=== PATIENT | female | born 1940 | race African-American/Black ===

== ENCOUNTER 2017-01-16 15:48 | Inpatient (IN) | payer MEDICARE ==
[~2017-01-16] VITALS: Ht 160 cm; Wt 55.4 kg
--- NOTE | 2017-01-16 16:37 | ED.ADGEN ---
Adult General Chief Complaint Chief Complaint: ABDOMINAL PAIN HPI HPI Patient is a 76 year old woman, who does not take any medications or have any known medical problems, who presents to the emergency department with a complaint of several days of gradually worsening abdominal distention and pain. Patient denies any nausea, is complaining of pain is sometimes extreme, located in her lower abdomen. States her last bowel movement was today and was normal. States she's not sure if there is any blood in her urine, denies any emesis, denies any injuries, denies any urinary complaints, any focal weakness, numbness , tingling, chest pain, shortness breath, fevers, chills or similar symptoms previously. Patient's family is present with her at bedside. States the patient has had decreased appetite over the past several days as well. No previous surgeries. Review of Systems Review of Systems Constitutional: Denies fever or chills. [] Eyes: Denies change in visual acuity. [] HENT: Denies nasal congestion or sore throat. [] Respiratory: Denies cough or shortness of breath. [] Cardiovascular: Denies chest pain or edema. [] GI: Complaining of cramping abdominal pain and distention, no nausea, vomiting, bloody stools or diarrhea, no constipation. : Denies dysuria. [] Musculoskeletal: Denies back pain or joint pain. [] Integument: Denies rash. [] Neurologic: Denies headache, focal weakness or sensory changes. [] Endocrine: Denies polyuria or polydipsia. [] Lymphatic: Denies swollen glands. [] Psychiatric: Denies depression or anxiety. [] Current Medications Current Medications Current Medications Medications (Trade) Dose Ordered Sig/Liborio Start Time Stop Time Status Last Admin Dose Admin Fentanyl Citrate (Fentanyl 2ml Vial) 25 mcg PRN Q15MIN PRN 01/16/17 16:45 01/16/17 21:12 DC 01/16/17 17:32 25 MCG Info (Do NOT chart on this entry -- for MONITORING) 1 each PRN DAILY PRN 01/16/17 16:45 01/18/17 16:44 Iohexol (Omnipaque 240 Mg/ml) 30 ml 1X ONCE 01/16/17 17:00 01/16/17 17:01 DC 01/16/17 17:00 30 ML Iohexol (Omnipaque 300 Mg/ml) 75 ml 1X ONCE 01/16/17 17:00 01/16/17 17:01 DC 01/16/17 17:41 75 ML Ondansetron HCl (Zofran) 4 mg 1X ONCE 01/16/17 16:45 01/16/17 16:46 DC 01/16/17 17:31 4 MG Sodium Chloride 500 ml @ 500 mls/hr 1X ONCE 01/16/17 18:30 01/16/17 19:29 DC 01/16/17 19:00 500 MLS/HR Allergies Allergies Allergies Coded Allergies Type Severity Reaction Last Updated Verified No Known Drug Allergies 01/16/17 No Physical Exam Physical Exam Constitutional: Well developed, well nourished, no acute distress, non-toxic appearance. [] HENT: Normocephalic, atraumatic, bilateral external ears normal, oropharynx moist, no oral exudates, nose normal. [] Eyes: PERRLA, EOMI, conjunctiva normal, no discharge. [] Neck: Normal range of motion, no tenderness, supple, no stridor. [] Cardiovascular:Heart rate regular rhythm, no murmur, S1, S2, rubs or gallops. [] Lungs & Thorax: Bilateral breath sounds clear to auscultation, no wheezing, rhonchi, rales. No chest or crepitus or tenderness. [] Abdomen: Bowel sounds significantly diminished, no tympany, abdomen is distended , soft, tender throughout, no external signs of abnormalities, positive for voluntary guarding, no rebound or rigidity. Skin: Warm, dry, no erythema, no rash. [] Back: No tenderness, no CVA tenderness. [] Extremities: No tenderness, no cyanosis, no clubbing, ROM intact, no edema. Negative Homans sign. [] Neurologic: Alert and oriented X 3, normal motor function, normal sensory function, no focal deficits noted. [] Psychologic: Affect normal, judgement normal, mood normal. [] Current Patient Data Vital Signs Vital Signs Date Time Temp Pulse Resp B/P (MAP) Pulse Ox O2 Delivery O2 Flow Rate FiO2 01/16/17 17:54 52 31 139/65 (89) 89 01/16/17 17:32 Room Air 01/16/17 15:51 97.9 97.9 Lab Values Laboratory Tests Test 01/16/17 16:30 White Blood Count 5.6 x10^3/uL (4.0-11.0) Red Blood Count 4.77 x10^6/uL (3.50-5.40) Hemoglobin 13.5 g/dL (12.0-15.5) Hematocrit 40.0 % (36.0-47.0) Mean Corpuscular Volume 84 fL (79-100) Mean Corpuscular Hemoglobin 28 pg (25-35) Mean Corpuscular Hemoglobin Concent 34 g/dL (31-37) Red Cell Distribution Width 14.0 % (11.5-14.5) Platelet Count 331 x10^3/uL (140-400) Neutrophils (%) (Auto) 80 % (31-73) H Lymphocytes (%) (Auto) 12 % (24-48) L Monocytes (%) (Auto) 7 % (0-9) Eosinophils (%) (Auto) 0 % (0-3) Basophils (%) (Auto) 0 % (0-3) Neutrophils # (Auto) 4.5 x10^3uL (1.8-7.7) Lymphocytes # (Auto) 0.7 x10^3/uL (1.0-4.8) L Monocytes # (Auto) 0.4 x10^3/uL (0.0-1.1) Eosinophils # (Auto) 0.0 x10^3/uL (0.0-0.7) Basophils # (Auto) 0.0 x10^3/uL (0.0-0.2) Sodium Level 141 mmol/L (136-145) Potassium Level 3.6 mmol/L (3.5-5.1) Chloride Level 103 mmol/L (98-107) Carbon Dioxide Level 28 mmol/L (21-32) Anion Gap 10 (6-14) Blood Urea Nitrogen 13 mg/dL (7-20) Creatinine 0.9 mg/dL (0.6-1.0) Estimated GFR (Cockcroft-Gault) 60.7 BUN/Creatinine Ratio 14 (6-20) Glucose Level 122 mg/dL (70-99) H Lactic Acid Level 2.5 mmol/L (0.4-2.0) H Calcium Level 9.0 mg/dL (8.5-10.1) Total Bilirubin 0.4 mg/dL (0.2-1.0) Aspartate Amino Transferase (AST) 22 U/L (15-37) Alanine Aminotransferase (ALT) 30 U/L (14-59) Alkaline Phosphatase 59 U/L (46-116) Total Protein 7.3 g/dL (6.4-8.2) Albumin 3.0 g/dL (3.4-5.0) L Albumin/Globulin Ratio 0.7 (1.0-1.7) L Lipase 82 U/L (73-393) Laboratory Tests 01/16/17 16:30 Laboratory Tests 01/16/17 16:30 EKG EKG EC: Sinus rhythm, heart rate 58 bpm, left axis deviation, QTC of 435, DE of 136, QRS 92, contour normality is noted in the lateral leads, inferior leads , abnormal ECG, does not meet STEMI criteria. As interpreted by me. Radiology/Procedures Radiology/Procedures [][facility] [address] [place] [address] IMAGING REPORT Signed PATIENT: TYREL TREJO ACCOUNT: [id number] : 1940 LOCATION: ER AGE: 76 SEX: F EXAM STATUS: REG ER ORD. PHYSICIAN: ANA LUISA PALACIO DO REASON: abd pain/distention PROCEDURE: CT ABD PELV W/ORAL&IV CONTRAST CT scan of the abdomen and pelvis with contrast 01/16/2017 CLINICAL HISTORY: Abdominal pain and distention. TECHNIQUE: After the oral administration of contrast and the intravenous administration of 75 cc of Omnipaque 240, contiguous, 5 mm axial sections were obtained through the abdomen and pelvis. One or more of the following individualized dose reduction techniques were utilized for this study: 1. Automated exposure control. 2. Adjustment of the mA and/or kV according to patient size. 3. Use of iterative reconstruction technique. FINDINGS: No previous imaging studies are available for comparison. Images through the lung bases demonstrate mild cardiomegaly. There is a small right pleural effusion. Right lower lobe atelectasis and/or infiltrate is seen. The liver, spleen, pancreas, and adrenal glands are within normal limits. A few rounded low-attenuation lesions are seen involving both kidneys. These measure 3 mm to 1.1 cm in size. These likely represent cysts. Mild to moderate scattered atherosclerotic plaque formation is seen involving the abdominal aorta and its branches. A large oval-shaped fluid collection is seen extending from the pelvis superiorly extending to the right of midline. This measures 22 x 20 x 16 cm and craniocaudal, transverse and AP dimensions.. This is felt to most likely represent an adnexal mass given the patient's history; however, marked distention of the urinary bladder could conceivably give this appearance as well as the urinary bladder is not well visualized within the pelvis. Air and stool distention of the colon is seen particularly involving the transverse/descending colon. The bowel is displaced by the large pelvic fluid collection throughout the abdomen. Dilated small and large bowel loops are seen within the abdomen and it is difficult to exclude a bowel obstruction on this study. Images through the pelvis demonstrate calcifications within the pelvis consistent with phleboliths. No free fluid is seen. Mild S-shaped curvature of the thoracolumbar spine is noted. IMPRESSION: 1. 22 x 20 x 16 cm oval-shaped fluid collection is seen extending from the pelvis superiorly into the abdomen displacing small and large bowel laterally and superiorly. Given the patient's history this is concerning for an adnexal mass (ovarian neoplasm). Alternatively this could represent a markedly distended urinary bladder as outlined above. 2. There is distention of both small and large bowel loops throughout the abdomen which could reflect a bowel obstruction as outlined above. Electronically signed by: Duane Metcalf MD (01/16/2017 6:43 PM) DICTATED and SIGNED BY: DUANE METCALF MD DATE: 01/16/171810 CC: ANA LUISA PALACIO DO; NO PCP ~ Impressions: [facility] [address] [place] [address] IMAGING REPORT Signed PATIENT: TYREL TREJO ACCOUNT: [id number] : 1940 LOCATION: ER AGE: 76 SEX: F EXAM STATUS: REG ER ORD. PHYSICIAN: ANA LUISA PALACIO DO REASON: Abd distention/ovarian mass PROCEDURE: PELVIS LIMITED OR FOLLOW UP Pelvic ultrasound HISTORY: Abnormal CT, distended abdomen COMPARISON: CT exam earlier the same day. FINDINGS: Multiple transabdominal sonographic images of the pelvis are submitted. There is very large cystic mass in the abdomen and pelvis apparently separate from and superior to the urinary bladder. There are some internal echoes present. This measures on the order of 20.9 x 15.5 x 17.8 cm. This is not associated with internal vascularity on color Doppler imaging. Point of origin is uncertain. IMPRESSION: 1. There is a very large cystic mass without significant internal vascularity in the abdomen and pelvis, separate from and superior to the urinary bladder. Electronically signed by: Noe Hayes MD (01/16/2017 7:57 PM) DICTATED and SIGNED BY: NOE HAYES MD DATE: 01/16/171954 CC: ANA LUISA PALACIO DO; NO PCP ~ Course & Med Decision Making Course & Med Decision Making Pertinent Labs and Imaging studies reviewed. (See chart for details) Patient's imaging reveals a large ovarian mass, concern for ovarian malignancy. Patient with elevated lactic at 2.5. I did discuss these findings with patient, and family at bedside. Discussed that this is concerning for possible ovarian malignancy, although the exact etiology of the cystic mass is unclear at this time. Patient is agreeable for admission to the hospital, patient receiving IV fluids in the emergency department, and analgesia, states she is resting more completely at this time. Due to severity of symptoms, with dehydration and strictly poor oral intake, and size of mass, inpatient workup is most appropriate at this time, we will consult CONTENT CURATOR for additional evaluation, patient was hesitant to come to the hospital first place, and though she will likely require benign on consultation, this is a*to for the patient's evaluation. Findings as above discussed with Dr. Waite of internal medicine, patient accepted to her service as a full admission to the medical telemetry floor, with IV fluids, consultation with CONTENT CURATOR, and monitoring. Dragon Disclaimer Dragon Disclaimer This electronic medical record was generated, in whole or in part, using a voice recognition dictation system. Departure Impression: Primary Impression: Ovarian mass Additional Impression: Abdominal pain Disposition: 09 ADMITTED INPATIENT Admitting Physician: Renetta Waite Condition: IMPROVED Problem Qualifiers ANA LUISA PALACIO DO January 16, 2017 16:37
[2017-01-16 16:42] LABS: BASO % 0 % (0-3); EOS % 0 % (0-3); HEMOGLOBIN 13.5 g/dL (12.0-15.5); LYMPH # 0.7 x10^3/uL (1.0-4.8); LYMPH % 12 % (24-48); MEAN CORPUSCULAR HEMOGLOBIN 28 pg (25-35); MEAN CORPUSCULAR HGB CONC 34 g/dL (31-37); MEAN CORPUSCULAR VOLUME 84 fL (79-100); MONO % 7 % (0-9); NEUT % 80 % (31-73); PLATELET COUNT 331 x10^3/uL (140-400); RED BLOOD COUNT 4.77 x10^6/uL (3.50-5.40); WHITE BLOOD COUNT 5.6 x10^3/uL (4.0-11.0)
[2017-01-16] MEDS ORDERED: ONDANSETRON PF 4 MG/2 ML VIAL. IV ONE (16:45)
[2017-01-16] MEDS ORDERED: CONTRAST GIVEN MC PRN (16:45)
[2017-01-16] MEDS ORDERED: fentaNYL PF VIAL 100 MCG/2 ML VIAL IV PRN ×2 (16:45→21:15)
[2017-01-16 16:59] LABS: CREATININE 0.9 mg/dL (0.6-1.0); GFR 60.7; POTASSIUM 3.6 mmol/L (3.5-5.1)
[2017-01-16] MEDS ORDERED: IOHEXOL 300 MG/ML 75 ML VIAL IV ONE (17:00)
[2017-01-16] MEDS ORDERED: IOHEXOL 240 MG/ML 50ML VIAL. PO ONE (17:00)
[2017-01-16 17:05] LABS: ALBUMIN/GLOBULIN RATIO 0.7 (1.0-1.7); TOTAL BILIRUBIN 0.4 mg/dL (0.2-1.0); TOTAL PROTEIN 7.3 g/dL (6.4-8.2)
[2017-01-16] MEDS ORDERED: IV NORMAL SALINE 500ML BAG 500 ML IV ONE (18:30)
--- NOTE | 2017-01-16 18:46 | RAD ---
CT scan of the abdomen and pelvis with contrast 01/16/2017 CLINICAL HISTORY: Abdominal pain and distention. TECHNIQUE: After the oral administration of contrast and the intravenous administration of 75 cc of Omnipaque 240, contiguous, 5 mm axial sections were obtained through the abdomen and pelvis. One or more of the following individualized dose reduction techniques were utilized for this study: 1. Automated exposure control. 2. Adjustment of the mA and/or kV according to patient size. 3. Use of iterative reconstruction technique. FINDINGS: No previous imaging studies are available for comparison. Images through the lung bases demonstrate mild cardiomegaly. There is a small right pleural effusion. Right lower lobe atelectasis and/or infiltrate is seen. The liver, spleen, pancreas, and adrenal glands are within normal limits. A few rounded low-attenuation lesions are seen involving both kidneys. These measure 3 mm to 1.1 cm in size. These likely represent cysts. Mild to moderate scattered atherosclerotic plaque formation is seen involving the abdominal aorta and its branches. A large oval-shaped fluid collection is seen extending from the pelvis superiorly extending to the right of midline. This measures 22 x 20 x 16 cm and craniocaudal, transverse and AP dimensions.. This is felt to most likely represent an adnexal mass given the patient's history; however, marked distention of the urinary bladder could conceivably give this appearance as well as the urinary bladder is not well visualized within the pelvis. Air and stool distention of the colon is seen particularly involving the transverse/descending colon. The bowel is displaced by the large pelvic fluid collection throughout the abdomen. Dilated small and large bowel loops are seen within the abdomen and it is difficult to exclude a bowel obstruction on this study. Images through the pelvis demonstrate calcifications within the pelvis consistent with phleboliths. No free fluid is seen. Mild S-shaped curvature of the thoracolumbar spine is noted. IMPRESSION: 1. 22 x 20 x 16 cm oval-shaped fluid collection is seen extending from the pelvis superiorly into the abdomen displacing small and large bowel laterally and superiorly. Given the patient's history this is concerning for an adnexal mass (ovarian neoplasm). Alternatively this could represent a markedly distended urinary bladder as outlined above. 2. There is distention of both small and large bowel loops throughout the abdomen which could reflect a bowel obstruction as outlined above. Electronically signed by: Duane Metcalf MD (01/16/2017 6:43 PM)
--- NOTE | 2017-01-16 20:00 | RAD ---
Pelvic ultrasound HISTORY: Abnormal CT, distended abdomen COMPARISON: CT exam earlier the same day. FINDINGS: Multiple transabdominal sonographic images of the pelvis are submitted. There is very large cystic mass in the abdomen and pelvis apparently separate from and superior to the urinary bladder. There are some internal echoes present. This measures on the order of 20.9 x 15.5 x 17.8 cm. This is not associated with internal vascularity on color Doppler imaging. Point of origin is uncertain. IMPRESSION: 1. There is a very large cystic mass without significant internal vascularity in the abdomen and pelvis, separate from and superior to the urinary bladder. Electronically signed by: Dexter Alexandre MD (01/16/2017 7:57 PM)
[2017-01-16 21:01] LABS: BILIRUBIN,URINE NEGATIVE (NEG); GLUCOSE,URINE NEGATIVE (NEG); NITRITE,URINE NEGATIVE (NEG); PROTEIN,URINE 30 mg/dL (NEG-TRACE); UROBILINOGEN,URINE 0.2 mg/dL (0.2 mg/dL)
[2017-01-16 21:08] LABS: BACTERIA,URINE 0 /HPF (0-FEW); RBC,URINE OCC /HPF (0-2); WBC,URINE OCC /HPF (0-4)
[2017-01-16 21:09] LABS: SQUAMOUS EPITHELIAL CELL,UR OCC /LPF
[2017-01-16] MEDS ORDERED: ACETAMINOPHEN 325 MG TABLET. PO PRN (21:15)
[2017-01-16] MEDS ORDERED: ONDANSETRON PF 4 MG/2 ML VIAL. IV PRN (21:15)
[2017-01-16] MEDS: IV NORMAL SALINE 1000ML BAG 1,000 ML IV SCH (21:30)
[2017-01-16 21:35] VITALS: BP 145/66
--- NOTE | 2017-01-16 21:45 | ACF ---
Admission Forms Criteria ABDOMINAL PAIN Clinical Indications for Admission to Inpatient Care (Place 'X' for any and all applicable criteria): Admission is indicated for ANY ONE of the following(1)(2)(3)(4)(5): [X ]I. Inpatient admission required rather than observation care (Also use Abdominal Pain: Observation Care, as appropriate) because of ANY ONE of the following: [ ]a) Severe pain requiring acute inpatient management [X ]b) Identification of etiology/finding that requires inpatient care (eg, aortic dissection, free air) [ ]c) Absent bowel sounds with complete ileus(6) [ ]d) Suspected toxic megacolon [ ]e) Severe electrolyte abnormalities requiring inpatient care [ ]f) High fever or infection requiring inpatient admission as indicated by ANY ONE of following(7)(8): [ ] i) Appropriate outpatient or observational care antimicrobial treatment unavailable, not effective, or not feasible [ ] ii) Documented bacteremia [ ] iii) Temperature > 104.9 degrees F (oral) [ ] iv) T >103.1 F (oral) or < 96.8 F(rectal) that does not respond to all emergency treatment measures [ ]g) Signs of intestinal obstruction [B] [ ]h) Hemodynamic instability [ ]i) IV fluid to replace significant ongoing losses (greater than 3 L/m2 per day) (12)(13) [ ]j) Percutaneous or open drainage (eg, abscess, biliary tract ) procedures [ ]k) Parenteral nutrition regimen that must be implemented on inpatient basis [ ]l) Other condition,treatment or monitoring requiring inpatient admission. [ ]II. Peritoneal signs present [ ]III. Surgery needed that cannot be performed on an ambulatory basis. [ ]IV. Evaluation requires patient to not eat or drink for extended period ( eg, more than 24 hours). [ ]V. Contraindications and/or Inappropriate clinical situations for Observational Care in patients with abdominal pain, when ANY ONE of the following is required: [ ]a) Thorough evaluation is required to prevent catastrophic events due to delays in diagnosing (e.g.Mesenteric ischemia) 1,3 [ ]b) Patient with severe pathology or with chronic symptoms unlikely to improve in the ED stay (3) [ ]. General contraindications and/or Inappropriate clinical situations for Observational Care in patients with abdominal pain, when ANY ONE of the following is required: [ ]a) Prediction of prolongation of LOS based on ANY ONE of the following may be considered as a contraindication for observational care 2, 3, 4, 5, 6, 7, 8, 9, 10, 11 [ ]i) Age > 65 yrs. [ ]ii) Patient arriving by ambulance [ ]iii) Patient with high acuity [ ]iv) Patient requiring vital sign monitoring [ ]v) Patient on IV medication [ ]b) Systolic blood pressures 180mmHg 3,12 [ ]c) Patient with altered mental status including delirium and other alteration of consciousness, (3) [ ]d) Patient whose discharge disposition will be to a longterm home or rehabilitation home should not be managed in Emergency Department Observation Unit. CMS rule requires 3 days hospital stay before such placement.3,13 [ ]e) Patient with failure to thrive due to broad array of etiologies 3,16,17 [ ]f) Inability to ambulate 3,14 Extended stay beyond goal length of stay may be needed for(2)(3): [ ]a) Persistent abdominal pain with suspected intra-abdominal process [ ]b) Diagnosed condition requiring continued stay (e.g., pancreatitis, complicated diverticulitis) [ ]c) Surgery (e.g., colectomy) The original [facility] content created by [employer] has been revised. The portions of the content which have been revised are identified through the use of italic text or in bold, and [facility] has neither reviewed nor approved the modified material.All other unmodified content is copyright [facility]. Please see references footnoted in the original [facility] edition 2016 Admission Criteria Met?: Yes JAIME ZAPATA January 16, 2017 21:45
[2017-01-16 23:05] VITALS: BP 131/58
[2017-01-17 03:05] VITALS: BP 132/57
[2017-01-17 05:17] LABS: BASO % 0 % (0-3); EOS % 1 % (0-3); HEMATOCRIT 33.2 % (36.0-47.0); LYMPH # 1.3 x10^3/uL (1.0-4.8); LYMPH % 28 % (24-48); MEAN CORPUSCULAR HEMOGLOBIN 28 pg (25-35); MEAN CORPUSCULAR HGB CONC 33 g/dL (31-37); MEAN CORPUSCULAR VOLUME 83 fL (79-100); MONO % 9 % (0-9); NEUT % 61 % (31-73); PLATELET COUNT 274 x10^3/uL (140-400); RED BLOOD COUNT 3.99 x10^6/uL (3.50-5.40); RED CELL DISTRIBUTION WIDTH 13.8 % (11.5-14.5); WHITE BLOOD COUNT 4.7 x10^3/uL (4.0-11.0)
[2017-01-17 05:38] LABS: CALCIUM 8.2 mg/dL (8.5-10.1); CREATININE 0.7 mg/dL (0.6-1.0); GFR 98.2; POTASSIUM 3.4 mmol/L (3.5-5.1)
[2017-01-17] MEDS: IV NORMAL SALINE 1000ML BAG 1,000 ML IV SCH ×2 (06:25→19:14)
[2017-01-17 07:00] VITALS: BP 135/70
--- NOTE | 2017-01-17 07:41 | EKG ---
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
[2017-01-17] MEDS ORDERED: POTASSIUM CHLORIDE 20 MEQ TABLET.ER. PO ONE (08:45)
[2017-01-17 11:00] VITALS: BP 151/69
--- NOTE | 2017-01-17 12:54 | HP ---
ADMIT DATE: 01/17/2017 CHIEF COMPLAINT: Abdominal pain and distention, 20-pound weight loss. HISTORY OF PRESENT ILLNESS: The patient is a pleasant 76-year-old female presents with weight loss, abdominal pain, distention. We did a CAT scan in the ER showing a very large ovarian mass about 20 cm across consistent with possible malignancy. She rates her symptoms as 7/10. She has associated weakness. I have discussed the case with the ER physician. We are going to admit the patient and try to get and consult Hematology/Oncology and RENEWABLE ENERGY TECHNICIAN. PAST MEDICAL HISTORY: Reviewed in the computerized H and P. ALLERGIES: None. FAMILY HISTORY: Coronary artery disease. SOCIAL HISTORY: She does not drink, smoke or take drugs. MEDICATIONS: Reviewed, please refer to the MRAD. REVIEW OF SYSTEMS: GENERAL: No history of weight change, weakness or fevers. SKIN: No bruising, hair changes or rashes. EYES: No blurred, double or loss of vision. NOSE AND THROAT: No history of nosebleeds, hoarseness or sore throat. HEART: No history of palpitations, chest pain or shortness of breath on exertion. LUNGS: Denies cough, hemoptysis, wheezing or shortness of breath. GASTROINTESTINAL: She complains of weight loss. She complains of abdominal pain, distension. GENITOURINARY: No history of frequency, urgency, hesitancy or nocturia. NEUROLOGIC: Denies history of numbness, tingling, tremor or weakness. PSYCHIATRIC: No history of panic, anxiety or depression. ENDOCRINE: No history of heat or cold intolerance, polyuria or polydipsia. EXTREMITIES: Denies muscle weakness, joint pain, pain on walking or stiffness. PHYSICAL EXAMINATION: VITAL SIGNS: Temperature afebrile, pulse 98, respirations 18, blood pressure 132/90. GENERAL: She is alert, cooperative. HEART: Normal S1, S2. LUNGS: Clear. ABDOMEN: Firm and distended. ENDOCRINE: No thyromegaly. LYMPHATICS: No cervical nodes. HEMATOPOIETIC: No bruising. LABORATORY DATA: White count is 5, hemoglobin 13, platelets 331. Electrolytes are normal. ASSESSMENT AND PLAN: Ovarian mass, suspect ovarian cancer. We are going to check a CA-125 level. Consult RENEWABLE ENERGY TECHNICIAN. Consult Dr. Stout. Frequent labs, continue home medicines, PT, OT. PROGNOSIS: Extremely guarded at best. NOLANL Umberto GEIGER DO DR: RANDY/mary JOB#: [id number] / [id number]
[2017-01-17 15:00] VITALS: BP 146/72
[2017-01-17 19:00] VITALS: BP 164/78
[2017-01-18 03:00] VITALS: BP 137/66
[2017-01-18 07:00] VITALS: BP 166/72
--- NOTE | 2017-01-18 10:03 | PDOC1 ---
History and Physical Date of Admission Date of Admission DATE: 01/16/17 Identification/Chief Complaint Chief Complaint ab pain, distention per son and daughter in law, found to have ovarian mass Problems: History of Present Illness History of Present Illness 76 yo AA F with severe dementia, worsening ab distention, found to have distention of both small and large intestines on CT a/p done 01/16/17 due to > 20cm cystic mass appearing to arise from adnexa. Hx of ROSHAN in 1960s. She relies fully on her son and daughter in law with whom she lives. She cannot do ADLs due to underlying dementia. She is unaware of where she is or why she is here. She does not express any pain to me. Past Medical History Cardiovascular: Other (tobacco use) Pulmonary: No pertinent hx CENTRAL NERVOUS SYSTEM: Dementia GI: No pertinent hx Heme/Onc: No pertinent hx Hepatobiliary: No pertinent hx Psych: No pertinent hx Musculoskeletal: No pain Rheumatologic: No pertinent hx Infectious disease: No pertinent hx ENT: No pertinent hx Renal/: No pertinent hx Endocrine: No pertinent hx Dermatology: No pertinent hx Past Surgical History Past Surgical History: Hysterectomy Family History Family History: Family History Unknown Social History Smoke: # pack years (45) ALCOHOL: none Drugs: None Current Problem List Problem List Problems Medical Problems: (1) Ovarian mass Status: Acute Problems: Current Medications Current Medications Current Medications Fentanyl Citrate (Fentanyl 2ml Vial) 25 mcg PRN Q15MIN PRN IV PAIN GREATER THAN 3/10 Last administered on 01/16/17 17:32; Start 01/16/17 at 16:45; Stop at 21:12; Status DC Ondansetron HCl (Zofran) 4 mg 1X ONCE IV Last administered on 01/16/17 17:31 ; Start 01/16/17 at 16:45; Stop 01/16/17 at 16:46; Status DC Iohexol (Omnipaque 240 Mg/ml) 30 ml 1X ONCE PO Last administered on 01/16/17 17:00; Start 01/16/17 at 17:00; Stop 01/16/17 at 17:01; Status DC Iohexol (Omnipaque 300 Mg/ml) 75 ml 1X ONCE IV Last administered on 01/16/17 17:41; Start 01/16/17 at 17:00; Stop 01/16/17 at 17:01; Status DC Info (Do NOT chart on this entry -- for MONITORING) 1 each PRN DAILY PRN MC SEE COMMENTS; Start 01/16/17 at 16:45; Stop 01/18/17 at 16:44 Sodium Chloride 500 ml @ 500 mls/hr 1X ONCE IV Last administered on 19:00; Start 01/16/17 at 18:30; Stop 01/16/17 at 19:29; Status DC Ondansetron HCl (Zofran) 4 mg PRN Q8HRS PRN IV NAUSEA/VOMITING; Start 01/16/17 at 21:15; Stop 01/17/17 at 21:14; Status DC Fentanyl Citrate (Fentanyl 2ml Vial) 50 mcg PRN Q2HR PRN IV PAIN; Start at 21:15; Stop 01/17/17 at 21:14; Status DC Sodium Chloride 1,000 ml @ 75 mls/hr [id number] IV Last administered on 06:25; Start 01/16/17 at 21:30; Stop 01/17/17 at 21:29; Status DC Acetaminophen (Tylenol) 650 mg PRN Q4HRS PRN PO FEVER; Start 01/16/17 at 21:15 ; Stop 01/17/17 at 21:14; Status DC Potassium Chloride (Klor-Con) 40 meq 1X ONCE PO Last administered on 11:10; Start 01/17/17 at 08:45; Stop 01/17/17 at 08:46; Status DC Allergies Allergies: Coded Allergies: No Known Drug Allergies (Unverified , 01/16/17) ROS Review of System hard to ascertain due to dementia General: YES: Fatigue, Appetite (worsened) PSYCHOLOGICAL ROS: YES: Memory difficulties Gastrointestinal: Yes Other (distention) Musculoskeletal: Yes Muscular Weakness Neurological: Yes Confusion Physical Exam General: No acute distress, Other (does not know where she is, what year it is , or who the president is; after explaining findings on CT, when I asked her again five minutes later what we were discussing, she had no recollection) HEENT: Atraumatic, Mucous membr. moist/pink Lungs: Clear to auscultation Heart: RRR Abdomen: Normal bowel sounds, Other (large firm mass encompassing large portion of entire abdominal cavity) Rectal Exam: not examined Extremities: No clubbing, No cyanosis, No edema, Other (muscle wasting) Neuro: Normal gait, Sensation intact Psych/Mental Status: Other (dementia) Vitals Vitals Vital Signs Date Time Temp Pulse Resp B/P (MAP) Pulse Ox O2 Delivery O2 Flow Rate FiO2 01/18/17 07:00 98.4 48 16 166/72 (103) 98 Room Air 98.4 Labs Labs Laboratory Tests Test 01/16/17 16:30 01/16/17 20:55 01/17/17 04:05 White Blood Count 5.6 x10^3/uL (4.0-11.0) 4.7 x10^3/uL (4.0-11.0) Red Blood Count 4.77 x10^6/uL (3.50-5.40) 3.99 x10^6/uL (3.50-5.40) Hemoglobin 13.5 g/dL (12.0-15.5) 11.0 g/dL (12.0-15.5) Hematocrit 40.0 % (36.0-47.0) 33.2 % (36.0-47.0) Mean Corpuscular Volume 84 fL (79-100) 83 fL (79-100) Mean Corpuscular Hemoglobin 28 pg (25-35) 28 pg (25-35) Mean Corpuscular Hemoglobin Concent 34 g/dL (31-37) 33 g/dL (31-37) Red Cell Distribution Width 14.0 % (11.5-14.5) 13.8 % (11.5-14.5) Platelet Count 331 x10^3/uL (140-400) 274 x10^3/uL (140-400) Neutrophils (%) (Auto) 80 % (31-73) 61 % (31-73) Lymphocytes (%) (Auto) 12 % (24-48) 28 % (24-48) Monocytes (%) (Auto) 7 % (0-9) 9 % (0-9) Eosinophils (%) (Auto) 0 % (0-3) 1 % (0-3) Basophils (%) (Auto) 0 % (0-3) 0 % (0-3) Neutrophils # (Auto) 4.5 x10^3uL (1.8-7.7) 2.9 x10^3uL (1.8-7.7) Lymphocytes # (Auto) 0.7 x10^3/uL (1.0-4.8) 1.3 x10^3/uL (1.0-4.8) Monocytes # (Auto) 0.4 x10^3/uL (0.0-1.1) 0.4 x10^3/uL (0.0-1.1) Eosinophils # (Auto) 0.0 x10^3/uL (0.0-0.7) 0.0 x10^3/uL (0.0-0.7) Basophils # (Auto) 0.0 x10^3/uL (0.0-0.2) 0.0 x10^3/uL (0.0-0.2) Sodium Level 141 mmol/L (136-145) 139 mmol/L (136-145) Potassium Level 3.6 mmol/L (3.5-5.1) 3.4 mmol/L (3.5-5.1) Chloride Level 103 mmol/L (98-107) 104 mmol/L (98-107) Carbon Dioxide Level 28 mmol/L (21-32) 28 mmol/L (21-32) Anion Gap 10 (6-14) 7 (6-14) Blood Urea Nitrogen 13 mg/dL (7-20) 14 mg/dL (7-20) Creatinine 0.9 mg/dL (0.6-1.0) 0.7 mg/dL (0.6-1.0) Estimated GFR (Cockcroft-Gault) 60.7 98.2 BUN/Creatinine Ratio 14 (6-20) Glucose Level 122 mg/dL (70-99) 68 mg/dL (70-99) Lactic Acid Level 2.5 mmol/L (0.4-2.0) Calcium Level 9.0 mg/dL (8.5-10.1) 8.2 mg/dL (8.5-10.1) Total Bilirubin 0.4 mg/dL (0.2-1.0) Aspartate Amino Transf (AST/SGOT) 22 U/L (15-37) Alanine Aminotransferase (ALT/SGPT) 30 U/L (14-59) Alkaline Phosphatase 59 U/L (46-116) Total Protein 7.3 g/dL (6.4-8.2) Albumin 3.0 g/dL (3.4-5.0) Albumin/Globulin Ratio 0.7 (1.0-1.7) Lipase 82 U/L (73-393) Urine Collection Type U cath Urine Color Yellow Urine Clarity Clear Urine pH 6.0 Urine Specific [facility] >=1.030 Urine Protein 30 mg/dL (NEG-TRACE) Urine Glucose (UA) Negative mg/dL (NEG) Urine Ketones (Stick) Negative mg/dL (NEG) Urine Blood Moderate (NEG) Urine Nitrite Negative (NEG) Urine Bilirubin Negative (NEG) Urine Urobilinogen Dipstick 0.2 mg/dL (0.2 mg/dL) Urine Leukocyte Esterase Negative (NEG) Urine RBC Occ /HPF (0-2) Urine WBC Occ /HPF (0-4) Urine Squamous Epithelial Cells Occ /LPF Urine Bacteria 0 /HPF (0-FEW) Urine Mucus Slight /LPF Images Images CT a/p 01/16/17 shows renal cysts, R pleural effusion, RLL atelectasis, abdominal aortic atherosclerosis, [id number] cystic mass causing distention of small and large bowel loops US pelvis 01/16/17 shows large cystic mass separate from bladder without significant internal vascularity VTE Prophylaxis Ordered VTE Prophylaxis Devices: Yes VTE Pharmacological Prophylaxi: No (plan for possible surgery?) Assessment/Plan Assessment/Plan 76 yo AA F c worsening ab distention per son and daughter in law, found to have >20cm mass most likely arising from adnexa, without much internal vascularity seen on pelvic ultrasound. Irregardless of CA-125 results, if we wanted to be as aggressive as possible, surgical excision would be first step for both diagnostic/staging and therapeutic purposes. Because of underlying dementia, this is going to have to be a decision made by family between the surgical team as to risks vs benefits. Son is really pushing for the surgery, but he doesn't quite grasp the possible complications and the goal of doing what is best for the patient herself. Recommend palliative care consult to have advanced directives discussion, goals of care. The next step should really have Evelin's best interests in mind, and that may mean no major open abdominal surgery, and just letting her enjoy whatever time she has left. I certainly am worried about post-op complications and continued physical decline if she were to try surgery. She has no DPOA, living will, dnar in place; but she should. And she should be DNAR as well due to dementia, and now ovarian mass. DARLEEN BOGGS MD January 18, 2017 10:03
[2017-01-18 11:00] VITALS: BP 153/69
--- NOTE | 2017-01-18 13:25 | PDOC ---
PROGRESS NOTES Chief Complaint Chief Complaint Ovarian mass Abdominal pain Weight loss Dementia Tobacco use History of Present Illness History of Present Illness Patient was sitting in chair eating lunch when seen States she feels "same old same old" Discussed care with nurse Discussed care with Dr. Vela Vitals Vitals Vital Signs Date Time Temp Pulse Resp B/P (MAP) Pulse Ox O2 Delivery O2 Flow Rate FiO2 01/18/17 11:00 98.7 56 18 153/69 (97) 97 Room Air 98.7 Physical Exam General: Alert, No acute distress Heart: Regular rate, Other (abnormal heart tones; palpable thrill) Lungs: Clear, Other (no wheezing) Abdomen: Normal bowel sounds, Soft Extremities: No clubbing, No cyanosis Skin: No rashes, No breakdown Review of Systems Review of Systems General: denies weakness GI: denies N/V/D/C Assessment and Plan Assessmemt and Plan Problems Medical Problems: (1) Ovarian mass Status: Acute Ovarian mass Abdominal pain Weight loss Dementia Tobacco use Plan: -Consulting palliative care for long-term care goals -Heme/Onc consulted- would consider palliative care to assess risks vs benefits of surgical excision, wants to discuss with family -OB consult pending -CA-125 level pending -Continue current management -PT/OT as appropriate -Discharge disposition pending -Subspecialist input appreciated Problems: Comment Review of Relevant I have reviewed the following items yola (where applicable) has been applied. Labs Laboratory Tests Test 01/16/17 16:30 01/16/17 20:55 01/17/17 04:05 White Blood Count 5.6 x10^3/uL (4.0-11.0) 4.7 x10^3/uL (4.0-11.0) Red Blood Count 4.77 x10^6/uL (3.50-5.40) 3.99 x10^6/uL (3.50-5.40) Hemoglobin 13.5 g/dL (12.0-15.5) 11.0 g/dL (12.0-15.5) Hematocrit 40.0 % (36.0-47.0) 33.2 % (36.0-47.0) Mean Corpuscular Volume 84 fL (79-100) 83 fL (79-100) Mean Corpuscular Hemoglobin 28 pg (25-35) 28 pg (25-35) Mean Corpuscular Hemoglobin Concent 34 g/dL (31-37) 33 g/dL (31-37) Red Cell Distribution Width 14.0 % (11.5-14.5) 13.8 % (11.5-14.5) Platelet Count 331 x10^3/uL (140-400) 274 x10^3/uL (140-400) Neutrophils (%) (Auto) 80 % (31-73) 61 % (31-73) Lymphocytes (%) (Auto) 12 % (24-48) 28 % (24-48) Monocytes (%) (Auto) 7 % (0-9) 9 % (0-9) Eosinophils (%) (Auto) 0 % (0-3) 1 % (0-3) Basophils (%) (Auto) 0 % (0-3) 0 % (0-3) Neutrophils # (Auto) 4.5 x10^3uL (1.8-7.7) 2.9 x10^3uL (1.8-7.7) Lymphocytes # (Auto) 0.7 x10^3/uL (1.0-4.8) 1.3 x10^3/uL (1.0-4.8) Monocytes # (Auto) 0.4 x10^3/uL (0.0-1.1) 0.4 x10^3/uL (0.0-1.1) Eosinophils # (Auto) 0.0 x10^3/uL (0.0-0.7) 0.0 x10^3/uL (0.0-0.7) Basophils # (Auto) 0.0 x10^3/uL (0.0-0.2) 0.0 x10^3/uL (0.0-0.2) Sodium Level 141 mmol/L (136-145) 139 mmol/L (136-145) Potassium Level 3.6 mmol/L (3.5-5.1) 3.4 mmol/L (3.5-5.1) Chloride Level 103 mmol/L (98-107) 104 mmol/L (98-107) Carbon Dioxide Level 28 mmol/L (21-32) 28 mmol/L (21-32) Anion Gap 10 (6-14) 7 (6-14) Blood Urea Nitrogen 13 mg/dL (7-20) 14 mg/dL (7-20) Creatinine 0.9 mg/dL (0.6-1.0) 0.7 mg/dL (0.6-1.0) Estimated GFR (Cockcroft-Gault) 60.7 98.2 BUN/Creatinine Ratio 14 (6-20) Glucose Level 122 mg/dL (70-99) 68 mg/dL (70-99) Lactic Acid Level 2.5 mmol/L (0.4-2.0) Calcium Level 9.0 mg/dL (8.5-10.1) 8.2 mg/dL (8.5-10.1) Total Bilirubin 0.4 mg/dL (0.2-1.0) Aspartate Amino Transf (AST/SGOT) 22 U/L (15-37) Alanine Aminotransferase (ALT/SGPT) 30 U/L (14-59) Alkaline Phosphatase 59 U/L (46-116) Total Protein 7.3 g/dL (6.4-8.2) Albumin 3.0 g/dL (3.4-5.0) Albumin/Globulin Ratio 0.7 (1.0-1.7) Lipase 82 U/L (73-393) Urine Collection Type U cath Urine Color Yellow Urine Clarity Clear Urine pH 6.0 Urine Specific [facility] >=1.030 Urine Protein 30 mg/dL (NEG-TRACE) Urine Glucose (UA) Negative mg/dL (NEG) Urine Ketones (Stick) Negative mg/dL (NEG) Urine Blood Moderate (NEG) Urine Nitrite Negative (NEG) Urine Bilirubin Negative (NEG) Urine Urobilinogen Dipstick 0.2 mg/dL (0.2 mg/dL) Urine Leukocyte Esterase Negative (NEG) Urine RBC Occ /HPF (0-2) Urine WBC Occ /HPF (0-4) Urine Squamous Epithelial Cells Occ /LPF Urine Bacteria 0 /HPF (0-FEW) Urine Mucus Slight /LPF Medications Current Medications Fentanyl Citrate (Fentanyl 2ml Vial) 25 mcg PRN Q15MIN PRN IV PAIN GREATER THAN 3/10 Last administered on 01/16/17t 17:32; Start 01/16/17 at 16:45; Stop at 21:12; Status DC Ondansetron HCl (Zofran) 4 mg 1X ONCE IV Last administered on 01/16/17 17:31 ; Start 01/16/17 at 16:45; Stop 01/16/17 at 16:46; Status DC Iohexol (Omnipaque 240 Mg/ml) 30 ml 1X ONCE PO Last administered on 01/16/17 17:00; Start 01/16/17 at 17:00; Stop 01/16/17 at 17:01; Status DC Iohexol (Omnipaque 300 Mg/ml) 75 ml 1X ONCE IV Last administered on 01/16/17 17:41; Start 01/16/17 at 17:00; Stop 01/16/17 at 17:01; Status DC Info (Do NOT chart on this entry -- for MONITORING) 1 each PRN DAILY PRN MC SEE COMMENTS; Start 01/16/17 at 16:45; Stop 01/18/17 at 16:44 Sodium Chloride 500 ml @ 500 mls/hr 1X ONCE IV Last administered on 19:00; Start 01/16/17 at 18:30; Stop 01/16/17 at 19:29; Status DC Ondansetron HCl (Zofran) 4 mg PRN Q8HRS PRN IV NAUSEA/VOMITING; Start 01/16/17 at 21:15; Stop 01/17/17 at 21:14; Status DC Fentanyl Citrate (Fentanyl 2ml Vial) 50 mcg PRN Q2HR PRN IV PAIN; Start at 21:15; Stop 01/17/17 at 21:14; Status DC Sodium Chloride 1,000 ml @ 75 mls/hr [id number] IV Last administered on 06:25; Start 01/16/17 at 21:30; Stop 01/17/17 at 21:29; Status DC Acetaminophen (Tylenol) 650 mg PRN Q4HRS PRN PO FEVER; Start 01/16/17 at 21:15 ; Stop 01/17/17 at 21:14; Status DC Potassium Chloride (Klor-Con) 40 meq 1X ONCE PO Last administered on 11:10; Start 01/17/17 at 08:45; Stop 01/17/17 at 08:46; Status DC Vitals/I & O Vital Sign - Last 24 Hours 01/17/17 01/17/17 01/17/17 5/27/17 15:00 19:00 20:30 23:00 Temp 98.4 98.7 98.4 98.7 Pulse 57 65 Resp 20 18 B/P (MAP) 146/72 (96) 164/78 (106) Pulse Ox 99 91 O2 Delivery Room Air Room Air Room Air Room Air 01/18/17 01/18/17 01/18/17 01/18/17 03:00 07:00 08:20 11:00 Temp 98.7 98.4 98.7 98.7 98.4 98.7 Pulse 66 48 56 Resp 18 16 18 B/P (MAP) 137/66 (89) 166/72 (103) 153/69 (97) Pulse Ox 93 98 97 O2 Delivery Room Air Room Air Room Air Room Air Intake and Output 01/17/17 01/17/17 01/18/17 15:00 23:00 07:00 Intake Total 550 ml 0 ml Balance 550 ml 0 ml EDUARDO GEIGER III DO January 18, 2017 13:25
[2017-01-18 15:00] VITALS: BP 144/78
[2017-01-18 19:00] VITALS: BP 126/77
[2017-01-19 03:00] VITALS: BP 145/78
[2017-01-19 07:00] VITALS: BP 142/64
[2017-01-19] MEDS ORDERED: ONDANSETRON ODT 4 MG TAB.RAPDIS. PO PRN (08:15)
[2017-01-19] MEDS ORDERED: HYDROcodone/APAP 5/325MG 1 TAB TABLET PO PRN (08:15)
[2017-01-19] MEDS ORDERED: ONDANSETRON PF 4 MG/2 ML VIAL. IV PRN (08:15)
[2017-01-19] MEDS ORDERED: ACETAMINOPHEN 325 MG TABLET. PO PRN (08:15)
[2017-01-19 11:00] VITALS: BP 143/62
--- NOTE | 2017-01-19 12:03 | PDOC ---
PROGRESS NOTES Chief Complaint Chief Complaint Huge adnexal mass concerning for malignancy - new dx Abdominal pain Weight loss Dementia Tobacco use Dementia History of Present Illness History of Present Illness NO family at bedside Heme onc note reviewed, recs palliative DOubt surgical candidacy GYNE has not seen yet US: IMPRESSION: 1. There is a very large cystic mass without significant internal vascularity in the abdomen and pelvis, separate from and superior to the urinary bladder. CT : I have personally reviewed: IMPRESSION: 1. 22 x 20 x 16 cm oval-shaped fluid collection is seen extending from the pelvis superiorly into the abdomen displacing small and large bowel laterally and superiorly. Given the patient's history this is concerning for an adnexal mass (ovarian neoplasm). Alternatively this could represent a markedly distended urinary bladder as outlined above. 2. There is distention of both small and large bowel loops throughout the abdomen which could reflect a bowel obstruction as outlined above. CA 125 pending Denies pain, no swallow issues \NO RN issues Plan: Await gyne rounds COnsult palliatve ff up CA 125 levels Supportive custodial meds? Vitals Vitals Vital Signs Date Time Temp Pulse Resp B/P (MAP) Pulse Ox O2 Delivery O2 Flow Rate FiO2 01/19/17 11:00 98.4 51 16 143/62 (89) 98 Room Air 98.4 Physical Exam General: No acute distress, Other (does not know where she is, what year it is , or who the president is; after explaining findings on CT, when I asked her again five minutes later what we were discussing, she had no recollection) Heart: Regular rate, Other (abnormal heart tones; palpable thrill) Lungs: Clear, Other (no wheezing) Abdomen: Normal bowel sounds, Other (large firm mass encompassing large portion of entire abdominal cavity) Extremities: No clubbing, No cyanosis, No edema, Other (muscle wasting) Skin: No rashes, No breakdown Review of Systems Review of Systems denies 14 pt - though limited - has dementia Assessment and Plan Assessmemt and Plan Problems Medical Problems: (1) Ovarian mass Status: Acute Problems: Comment Review of Relevant I have reviewed the following items yola (where applicable) has been applied. Medications Current Medications Fentanyl Citrate (Fentanyl 2ml Vial) 25 mcg PRN Q15MIN PRN IV PAIN GREATER THAN 3/10 Last administered on 01/16/17t 17:32; Start 01/16/17 at 16:45; Stop at 21:12; Status DC Ondansetron HCl (Zofran) 4 mg 1X ONCE IV Last administered on 01/16/17 17:31 ; Start 01/16/17 at 16:45; Stop 01/16/17 at 16:46; Status DC Iohexol (Omnipaque 240 Mg/ml) 30 ml 1X ONCE PO Last administered on 01/16/17 17:00; Start 01/16/17 at 17:00; Stop 01/16/17 at 17:01; Status DC Iohexol (Omnipaque 300 Mg/ml) 75 ml 1X ONCE IV Last administered on 01/16/17 17:41; Start 01/16/17 at 17:00; Stop 01/16/17 at 17:01; Status DC Info (Do NOT chart on this entry -- for MONITORING) 1 each PRN DAILY PRN MC SEE COMMENTS; Start 01/16/17 at 16:45; Stop 01/18/17 at 16:44; Status DC Sodium Chloride 500 ml @ 500 mls/hr 1X ONCE IV Last administered on 19:00; Start 01/16/17 at 18:30; Stop 01/16/17 at 19:29; Status DC Ondansetron HCl (Zofran) 4 mg PRN Q8HRS PRN IV NAUSEA/VOMITING; Start 01/16/17 at 21:15; Stop 01/17/17 at 21:14; Status DC Fentanyl Citrate (Fentanyl 2ml Vial) 50 mcg PRN Q2HR PRN IV PAIN; Start at 21:15; Stop 01/17/17 at 21:14; Status DC Sodium Chloride 1,000 ml @ 75 mls/hr [id number] IV Last administered on 06:25; Start 01/16/17 at 21:30; Stop 01/17/17 at 21:29; Status DC Acetaminophen (Tylenol) 650 mg PRN Q4HRS PRN PO FEVER; Start 01/16/17 at 21:15 ; Stop 01/17/17 at 21:14; Status DC Potassium Chloride (Klor-Con) 40 meq 1X ONCE PO Last administered on 11:10; Start 01/17/17 at 08:45; Stop 01/17/17 at 08:46; Status DC Acetaminophen (Tylenol) 650 mg PRN Q6HRS PRN PO pain; Start 01/19/17 at 08:15 Ondansetron HCl (Zofran) 4 mg PRN Q6HRS PRN IV NAUSEA/VOMITING; Start 01/19/17 at 08:15 Ondansetron HCl (Zofran Odt) 4 mg PRN Q6HRS PRN PO NAUSEA/VOMITING; Start 01/19 at 08:15 Acetaminophen/ Hydrocodone Bitart (Lortab 5/325) 1 tab PRN Q4HRS PRN PO PAIN; Start 01/19/17 at 08:15 Vitals/I & O Vital Sign - Last 24 Hours 01/18/17 01/18/17 01/18/17 01/18/17 15:00 19:00 19:42 23:00 Temp 99.0 99.2 99.0 99.2 Pulse 91 94 Resp 18 18 20 B/P (MAP) 144/78 (100) 126/77 (93) Pulse Ox 98 98 O2 Delivery Room Air Room Air Room Air Room Air 01/19/17 01/19/17 01/19/17 01/19/17 03:00 07:00 07:58 11:00 Temp 97.3 98.5 98.4 97.3 98.5 98.4 Pulse 53 51 51 Resp 18 16 16 B/P (MAP) 145/78 (100) 142/64 (90) 143/62 (89) Pulse Ox 99 99 98 O2 Delivery Room Air Room Air Room Air Room Air Intake and Output 01/18/17 01/18/17 01/19/17 15:00 23:00 07:00 Intake Total 120 ml 0 ml Balance 120 ml 0 ml DAHLIA COOPER MD January 19, 2017 12:03
[2017-01-19 15:00] VITALS: BP 140/60
[2017-01-19 19:26] VITALS: BP 131/69
[2017-01-19 23:26] VITALS: BP 115/58
[2017-01-20 03:16] VITALS: BP 146/59
[2017-01-20 07:00] VITALS: BP 126/58
--- NOTE | 2017-01-20 09:28 | PDOC ---
PROGRESS NOTES Chief Complaint Chief Complaint No obstructive sxs Eating ok Ambulating fine with PT Heavy dw family - son and dtr yesterday - 40 mins at least Would like to explore other options aside from going palliative CA 125 is 125 Dw [facility] onc today PLAN: I am attempting transfer to [facility] If no acceptance dc today and ff up with them as OP dw family and Girish REDD History of Present Illness History of Present Illness NO family at bedside [facility] onc note reviewed, recs palliative DOubt surgical candidacy [facility] has not seen yet US: IMPRESSION: 1. There is a very large cystic mass without significant internal vascularity in the abdomen and pelvis, separate from and superior to the urinary bladder. CT : I have personally reviewed: IMPRESSION: 1. 22 x 20 x 16 cm oval-shaped fluid collection is seen extending from the pelvis superiorly into the abdomen displacing small and large bowel laterally and superiorly. Given the patient's history this is concerning for an adnexal mass (ovarian neoplasm). Alternatively this could represent a markedly distended urinary bladder as outlined above. 2. There is distention of both small and large bowel loops throughout the abdomen which could reflect a bowel obstruction as outlined above. CA 125 pending Denies pain, no swallow issues \NO RN issues Plan: Await [facility] rounds COnsult palliatve ff up CA 125 levels Supportive snf meds? Vitals Vitals Vital Signs Date Time Temp Pulse Resp B/P (MAP) Pulse Ox O2 Delivery O2 Flow Rate FiO2 01/20/17 07:00 98.1 53 18 126/58 (80) 99 Room Air 98.1 Physical Exam General: No acute distress, Other (does not know where she is, what year it is , or who the president is; after explaining findings on CT, when I asked her again five minutes later what we were discussing, she had no recollection) Heart: Regular rate, Other (abnormal heart tones; palpable thrill) Lungs: Clear, Other (no wheezing) Abdomen: Normal bowel sounds, Other (large firm mass encompassing large portion of entire abdominal cavity) Extremities: No clubbing, No cyanosis, No edema, Other (muscle wasting) Skin: No rashes, No breakdown Review of Systems Review of Systems denies Assessment and Plan Assessmemt and Plan Problems Medical Problems: (1) Ovarian mass Status: Acute Problems: Comment Review of Relevant I have reviewed the following items yola (where applicable) has been applied. Medications Current Medications Fentanyl Citrate (Fentanyl 2ml Vial) 25 mcg PRN Q15MIN PRN IV PAIN GREATER THAN 3/10 Last administered on 01/16/17 17:32; Start 01/16/17 at 16:45; Stop at 21:12; Status DC Ondansetron HCl (Zofran) 4 mg 1X ONCE IV Last administered on 01/16/17 17:31 ; Start 01/16/17 at 16:45; Stop 01/16/17 at 16:46; Status DC Iohexol (Omnipaque 240 Mg/ml) 30 ml 1X ONCE PO Last administered on 01/16/17 17:00; Start 01/16/17 at 17:00; Stop 01/16/17 at 17:01; Status DC Iohexol (Omnipaque 300 Mg/ml) 75 ml 1X ONCE IV Last administered on 01/16/17 17:41; Start 01/16/17 at 17:00; Stop 01/16/17 at 17:01; Status DC Info (Do NOT chart on this entry -- for MONITORING) 1 each PRN DAILY PRN MC SEE COMMENTS; Start 01/16/17 at 16:45; Stop 01/18/17 at 16:44; Status DC Sodium Chloride 500 ml @ 500 mls/hr 1X ONCE IV Last administered on 19:00; Start 01/16/17 at 18:30; Stop 01/16/17 at 19:29; Status DC Ondansetron HCl (Zofran) 4 mg PRN Q8HRS PRN IV NAUSEA/VOMITING; Start 01/16/17 at 21:15; Stop 01/17/17 at 21:14; Status DC Fentanyl Citrate (Fentanyl 2ml Vial) 50 mcg PRN Q2HR PRN IV PAIN; Start at 21:15; Stop 01/17/17 at 21:14; Status DC Sodium Chloride 1,000 ml @ 75 mls/hr [id number] IV Last administered on 06:25; Start 01/16/17 at 21:30; Stop 01/17/17 at 21:29; Status DC Acetaminophen (Tylenol) 650 mg PRN Q4HRS PRN PO FEVER; Start 01/16/17 at 21:15 ; Stop 01/17/17 at 21:14; Status DC Potassium Chloride (Klor-Con) 40 meq 1X ONCE PO Last administered on t 11:10; Start 01/17/17 at 08:45; Stop 01/17/17 at 08:46; Status DC Acetaminophen (Tylenol) 650 mg PRN Q6HRS PRN PO pain; Start 01/19/17 at 08:15 Ondansetron HCl (Zofran) 4 mg PRN Q6HRS PRN IV NAUSEA/VOMITING; Start 01/19/17 at 08:15 Ondansetron HCl (Zofran Odt) 4 mg PRN Q6HRS PRN PO NAUSEA/VOMITING; Start 01/19 at 08:15 Acetaminophen/ Hydrocodone Bitart (Lortab 5/325) 1 tab PRN Q4HRS PRN PO PAIN; Start 01/19/17 at 08:15 Vitals/I & O Vital Sign - Last 24 Hours 01/19/17 01/19/17 01/19/17 01/19/17 11:00 15:00 19:26 23:26 Temp 98.4 98.6 98.7 97.9 98.4 98.6 98.7 97.9 Pulse 51 65 79 69 Resp 16 16 18 18 B/P (MAP) 143/62 (89) 140/60 (86) 131/69 (89) 115/58 (77) Pulse Ox 98 98 97 98 O2 Delivery Room Air Room Air Room Air Room Air 01/20/17 01/20/17 03:16 07:00 Temp 98.5 98.1 98.5 98.1 Pulse 56 53 Resp 18 18 B/P (MAP) 146/59 (88) 126/58 (80) Pulse Ox 99 99 O2 Delivery Room Air Room Air Intake and Output 01/19/17 01/19/17 01/20/17 15:00 23:00 07:00 Intake Total 240 ml 200 ml Balance 240 ml 200 ml DAHLIA COOPER MD January 20, 2017 09:28
--- NOTE | 2017-01-20 10:10 | PDOC ---
PROGRESS NOTES Subjective Subjective c/c - f/u of Ovarian mass Objective Objective Vital Signs Date Time Temp Pulse Resp B/P (MAP) Pulse Ox O2 Delivery O2 Flow Rate FiO2 01/20/17 07:00 98.1 53 18 126/58 (80) 99 Room Air 98.1 Intake and Output 01/20/17 07:00 Intake Total 440 ml Balance 440 ml Intake Oral 440 ml # Voids 3 # Bowel Movements 1 Physical Exam Heart: Normal S1, Normal S2 General: Alert Lungs: Clear to auscultation Assessment Assessment Problems Medical Problems: (1) Ovarian mass Status: Acute 1. Ovarian mass - concerning for malignancy. Family wants [facility] Manager Onc opinion. I d/ w DR Damon and I agree to transfer to . 2. Dementia- cont supportive care Comment Review of Relevant I have reviewed the following items yola (where applicable) has been applied. Medications Current Medications Fentanyl Citrate (Fentanyl 2ml Vial) 25 mcg PRN Q15MIN PRN IV PAIN GREATER THAN 3/10 Last administered on 01/16/17 17:32; Start 01/16/17 at 16:45; Stop at 21:12; Status DC Ondansetron HCl (Zofran) 4 mg 1X ONCE IV Last administered on 01/16/17 17:31 ; Start 01/16/17 at 16:45; Stop 01/16/17 at 16:46; Status DC Iohexol (Omnipaque 240 Mg/ml) 30 ml 1X ONCE PO Last administered on 01/16/17 17:00; Start 01/16/17 at 17:00; Stop 01/16/17 at 17:01; Status DC Iohexol (Omnipaque 300 Mg/ml) 75 ml 1X ONCE IV Last administered on 01/16/17 17:41; Start 01/16/17 at 17:00; Stop 01/16/17 at 17:01; Status DC Info (Do NOT chart on this entry -- for MONITORING) 1 each PRN DAILY PRN MC SEE COMMENTS; Start 01/16/17 at 16:45; Stop 01/18/17 at 16:44; Status DC Sodium Chloride 500 ml @ 500 mls/hr 1X ONCE IV Last administered on 19:00; Start 01/16/17 at 18:30; Stop 01/16/17 at 19:29; Status DC Ondansetron HCl (Zofran) 4 mg PRN Q8HRS PRN IV NAUSEA/VOMITING; Start 01/16/17 at 21:15; Stop 01/17/17 at 21:14; Status DC Fentanyl Citrate (Fentanyl 2ml Vial) 50 mcg PRN Q2HR PRN IV PAIN; Start at 21:15; Stop 01/17/17 at 21:14; Status DC Sodium Chloride 1,000 ml @ 75 mls/hr [id number] IV Last administered on 06:25; Start 01/16/17 at 21:30; Stop 01/17/17 at 21:29; Status DC Acetaminophen (Tylenol) 650 mg PRN Q4HRS PRN PO FEVER; Start 01/16/17 at 21:15 ; Stop 01/17/17 at 21:14; Status DC Potassium Chloride (Klor-Con) 40 meq 1X ONCE PO Last administered on 11:10; Start 01/17/17 at 08:45; Stop 01/17/17 at 08:46; Status DC Acetaminophen (Tylenol) 650 mg PRN Q6HRS PRN PO pain; Start 01/19/17 at 08:15 Ondansetron HCl (Zofran) 4 mg PRN Q6HRS PRN IV NAUSEA/VOMITING; Start 01/19/17 at 08:15 Ondansetron HCl (Zofran Odt) 4 mg PRN Q6HRS PRN PO NAUSEA/VOMITING; Start 01/19 at 08:15 Acetaminophen/ Hydrocodone Bitart (Lortab 5/325) 1 tab PRN Q4HRS PRN PO PAIN; Start 01/19/17 at 08:15 Vitals/I & O Vital Sign - Last 24 Hours 01/19/17 01/19/17 01/19/17 01/19/17 11:00 15:00 19:26 23:26 Temp 98.4 98.6 98.7 97.9 98.4 98.6 98.7 97.9 Pulse 51 65 79 69 Resp 16 16 18 18 B/P (MAP) 143/62 (89) 140/60 (86) 131/69 (89) 115/58 (77) Pulse Ox 98 98 97 98 O2 Delivery Room Air Room Air Room Air Room Air 5/30/17 5/30/17 03:16 07:00 Temp 98.5 98.1 98.5 98.1 Pulse 56 53 Resp 18 18 B/P (MAP) 146/59 (88) 126/58 (80) Pulse Ox 99 99 O2 Delivery Room Air Room Air Intake and Output 01/19/17 01/19/17 01/20/17 15:00 23:00 07:00 Intake Total 240 ml 200 ml Balance 240 ml 200 ml CINDA BELLA MD January 20, 2017 10:10
--- NOTE | 2017-01-20 10:57 | PDOC3 ---
Discharge Summary Visit Information Date of Admission: January 16, 2017 Date of Discharge: January 20, 2017 Admitting Diagnosis Comment: Huge adnexal mass concerning for malignancy - new dx Abdominal pain Weight loss Dementia, mild Tobacco use Final Diagnosis Problems Medical Problems: (1) Ovarian mass Status: Acute Brief Hospital Course Allergies Allergies Coded Allergies Type Severity Reaction Last Updated Verified No Known Drug Allergies 01/16/17 No Vital Signs Vital Signs Date Time Temp Pulse Resp B/P (MAP) Pulse Ox O2 Delivery O2 Flow Rate FiO2 01/20/17 07:00 98.1 53 18 126/58 (80) 99 Room Air 98.1 Brief Hospital Course Ms. Carney is a 76 old [A female with good quality of life admitted for abd distention, mild abd pain and SOA. CT showed huge adnexal mass, CA 125 was elvated at 125 plus,. NO obstjuctive sxs, tolerating PO diet, ambulating with PT. Attempted transfer to [facility] per family request, As expected (not unreasonable), no urgency in hospital to hosp transfer, Gave clinic number though for us to set up an appt, [phone] Spke with robb Pruitt RN Spoke with Vinh RN Spoke with family twice; Time 76 mins cumulative including attempt to transfer etc.. Pt seen and examined Discharge Information Condition at Discharge: Improved, Stable Follow Up: Weeks ( [facility] clinic [phone]) Disposition/Orders: D/C to Home DAHLIA COOPER MD January 20, 2017 10:57
[2017-01-20 11:00] VITALS: BP 131/67
== END 2017-01-20 11:50 | disposition home or self-care (01) | DRG 755 ==
LOC: ER 15:48 → 4 NORTH 19:32
PROVIDERS: ADMIT Internal Medicine; ATTEND Internal Medicine
DX: C56.9 Malignant neoplasm of unspecified ovary (principal); E44.1 Mild protein-calorie malnutrition; F03.90 Unspecified dementia, unspecified severity, without behavioral disturbance, psychotic disturbance, mood disturbance, and anxiety; R97.1 Elevated cancer antigen 125 [CA 125]; Z51.5 Encounter for palliative care; Z82.49 Family history of ischemic heart disease and other diseases of the circulatory system; Z79.899 Other long term (current) drug therapy; Z79.1 Long term (current) use of non-steroidal anti-inflammatories (NSAID); Z72.0 Tobacco use; D63.8 Anemia in other chronic diseases classified elsewhere
CPT/HCPCS: 36415; 51701; 74177; 76857; 80048; 80053; 81001; 83605; 83690; 85027; 86304; 93005; 96374; 96375; J2405; J3010; J7030; J7040; Q9966; Q9967; 97530; 99285-25